=== PATIENT | male | born 1945 | race Caucasian/White ===

== ENCOUNTER → 2016-12-16 | Day surgery (SDC) | payer OTHER ==
[~2016-12-16] MED LIST: ACCUPRIL40 MG PO; ASPIRIN EC81 M1 PO; ASPIRIN81 M1 PO; BAYER ASPIRIN325 M1 PO; CARVEDILOL25 MG PO; IBUPROFEN600 MG PO; MULTI VITAMIN1 EACH PO; MULTI-DAY VITA1 EACH PO; MULTIPLE VITAMI1 T11 PO; NORCO 10-325 TA1 TAB PO; OMEPRAZOLE40 M1 PO; OMEPRAZOLE40 MG PO; PREVACID PO; SIMVASTATIN40 MG PO
--- NOTE | ~2016-12-16 | OR ---
Unit #: [id number] #: [id number] Patient: DEBBIE FULTON [id number] [address] [address] [id number] O MR#: [id number] NAME: DEBBIE FULTON ROOM: Date of Procedure: 12/16/2016 Admission Date: 12/16/2016 Surgeon: Coy Mcgowan M.D. : 1945 Attending Physician: Coy Mcgowan M.D. Primary Care Physician: Primary Care Physician No OPERATIVE REPORT PROCEDURE PERFORMED Esophagogastroduodenoscopy with biopsy, esophagogastroduodenoscopy with balloon dilatation, colonoscopy with snare polypectomy. INDICATIONS FOR PROCEDURE The patient with history of chronic GERD, also with history of colon polyps, undergoing evaluation with upper endoscopy and colonoscopy. MEDICATIONS Monitored anesthesia. POSTOPERATIVE FINDINGS 1. Esophageal ring and hiatal hernia, dilation carried out to 20 mm. 2. Chronic appearing gastritis. Biopsies taken. 3. Normal duodenum and distal duodenum. 4. Polyp, descending colon, 6 mm, snared and sent for histopathology. 5. Rest of the colon exam to cecum was normal. 6. Internal hemorrhoids. PLAN Follow up on the pathology report. Repeat colonoscopy in 5 years. Continue PPI therapy. DESCRIPTION OF PROCEDURE The patient was explained of the procedure risks and benefits along with risks and benefits of anesthesia. He was brought to the endoscopy room. Propofol anesthesia was given. Bite block was placed. The scope was passed down the mouth into esophagus, stomach, duodenum, and distal duodenum. Findings as described. Biopsies taken. Dilation was carried out successfully. Gently, the scope was pulled out. He tolerated it well. At this time, he was turned around and repositioned for colonoscopy. Rectal exam was done, which was normal. Colonoscope was lubricated, passed up the rectum, advanced under direct vision all the way to the cecum. Cecum was identified by ileocecal valve and appendiceal orifice. Polyp seen in descending colon was snared and sent for histopathology. I retroflexed in the rectum, small hemorrhoids seen. Scope was gently pulled out. He tolerated it well. No major complications seen. Dictated by... Coy Mcgowan M.D. Unit #: [id number] #: [id number] Patient: DEBBIE FULTON BOBBY/herminia TD: 12/16/2016 15:20 JOB #: [id number] OPERATIVE REPORT Page 1 of 1 X Coy Mcgowan MD PROCEDURE OPERATIVE NOTE
== END | disposition home or self-care (01) ==
LOC: COPS 06:38
DX: Z12.11 Encounter for screening for malignant neoplasm of colon (principal); K31.7 Polyp of stomach and duodenum; D12.4 Benign neoplasm of descending colon; K22.2 Esophageal obstruction; K44.9 Diaphragmatic hernia without obstruction or gangrene; K64.8 Other hemorrhoids; K21.9 Gastro-esophageal reflux disease without esophagitis; I10 Essential (primary) hypertension; M19.90 Unspecified osteoarthritis, unspecified site; Z86.010 Personal history of colon polyps; Z83.71 Family history of colonic polyps; Z98.890 Other specified postprocedural states; Z79.82 Long term (current) use of aspirin; Z79.899 Other long term (current) drug therapy
CPT/HCPCS: 88305; 88312